=== PATIENT | female | born 1980 | race Two or more races ===

== ENCOUNTER 2025-03-19 23:09 | Emergency (ER) | payer MEDICAID, OTHER ==
[~2025-03-19] VITALS: Ht 172.7 cm; Wt 127.3 kg
--- NOTE | 2025-03-19 23:34 | ED.PDOC ---
History of Present Illness HPI Comments 45 y/o F is BIBA for c/c of nonradiating, midsternal chest pain, that radiates to her back, with associated shortness of breath. Per EMS report, patient endorses on sudden, unprovoked, and atraumatic onset of symptoms at around 2200, this evening. Patient comments on having a headache prior to onset of symptoms along with endorsement of 1x incident of blood in her stools after taking a laxative for constipation. Patient received 1x NTG by EMS en route, with improvement. Denial of any palpitations, dizziness, lightheadedness, or further associated symptoms. Chief Complaint: Chest Pain Time Seen by MD: 23:15 Reviewed Notes: Nurses Notes, Marsh Buggy Operator Notes, Medications, Allergies Allergies: Coded Allergies: Cephalexin (Verified Allergy, Unknown, 03/19/25) Penicillins (Verified Allergy, Unknown, 03/19/25) Sulfamethoxazole w/Trimethoprim (Verified Allergy, Unknown, 03/19/25) Information Source: Patient, Emergency Med Personnel Past Medical History PAST MEDICAL HISTORY: GERD, HTN Past Medical History (Other): bipolar disorder Surgical History: Thyroidectomy Surgical History (Other): Sinus surgery All Other Systems: Reviewed and Negative (Comprehensive systems review obtained and negative except for what is stated in the HPI.) Physical Exam General Appearance: Mild Distress, Obese HEENT: Normal ENT Inspection, Pharynx Normal, TMs Normal Neck: Full Range of Motion, Non-Tender, Normal, Normal Inspection Respiratory: Chest Non-Tender, Lungs Clear, No Accessory Muscle Use, No Resp iratory Distress, Normal Breath Sounds Cardiovascular: No Edema, No JVD, No Murmur, No Gallop, Normal Peripheral Pulses, Regular Rate/Rhythm Breast Exam: Deferred Gastrointestinal: No Organomegaly, Non Tender, No Pulsatile Mass, Normal Bowel Sounds, Soft Genitalia: Deferred Pelvic: Deferred Rectal: Deferred Extremities: No calf tenderness, Normal capillary refill, Normal inspection, Normal range of motion, Non-tender, No pedal edema Musculoskeletal : Apperance: Normal Neurologic: Alert, 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 Was a procedure done?: No Differential Dx Considerations may include: DE, PE, ACS, URI, PNA, angina, anxiety, gastritis, among others X-Ray, Labs, Meds, VS Vital Signs Date Time Temp Pulse Resp B/P (MAP) Pulse Ox O2 Delivery O2 Flow Rate FiO2 03/20/25 00:03 89 03/19/25 23:10 98.1 115 20 98/66 99 98.1 03/19/25 23:10 107 Lab Test 03/19/25 23:20 Range/Units White Blood Count 8.1 4.4-10.8 10^3/uL Red Blood Count 5.35 H 4.0-5.20 10^6/uL Hemoglobin 12.1 L 12.2-16.2 g/dL Hematocrit 37.7 36.0-46.0 % Mean Corpuscular Volume 70.6 L 80.0-100.0 fL Mean Corpuscular Hemoglobin 22.7 L 28.0-32.0 pg Mean Corpuscular Hemoglobin Concent 32.1 32.0-36.0 g/dL Red Cell Distribution Width 18.7 H 11.8-14.3 % Platelet Count 241 140-450 10^3/uL Mean Platelet Volume 8.5 6.9-10.8 fL Neutrophils (%) (Auto) 71.2 37.0-80.0 % Lymphocytes (%) (Auto) 23.9 10.0-50.0 % Monocytes (%) (Auto) 4.5 0.0-12.0 % Eosinophils (%) (Auto) 0.1 0.0-7.0 % Basophils (%) (Auto) 0.3 0.0-2.0 % Neutrophils # (Auto) 5.8 1.6-8.6 10 ^3/uL Lymphocytes # (Auto) 1.9 0.4-5.4 10 ^3/uL Monocytes # (Auto) 0.4 0-1.3 10 ^3/uL Eosinophils # (Auto) 0 0-0.8 10 ^3/uL Basophils # (Auto) 0 0-0.2 10 ^3/uL Nucleated Red Blood Cells 0.0 % Sodium Level 139 136-145 mmol/L Potassium Level 3.7 3.5-5.1 mmol/L Chloride Level 109 H 98-107 mmol/L Carbon Dioxide Level 26 20-31 mmol/L Anion Gap 4 L 5-15 Blood Urea Nitrogen 11 9-23 mg/dL Creatinine 0.77 0.550-1.02 mg/dL Glomerular Filtration Rate Calc 96 >90 mL/min BUN/Creatinine Ratio 14.3 10.0-20.0 Serum Glucose 124 H 74-106 mg/dL Calcium Level 9.0 8.7-10.4 mg/dL Total Bilirubin 0.3 0.2-1.0 mg/dL Aspartate Amino Transferase (AST) 18 13-40 U/L Alanine Aminotransferase (ALT) 18 7-40 U/L Alkaline Phosphatase 78 46-116 U/L Troponin I High Sensitivity < 3 L </=34 ng/L Total Protein 7.1 5.7-8.2 g/dL Albumin 4.4 3.2-4.8 g/dL [place] [id number] Ph: [phone] DIAGNOSTIC IMAGING Diagnostic Imaging Report : [id number] Signed PATIENT: ALBERTINA MARTINEZ ACCT: [id number] UNIT: [id number] : 1980 LOC: ER ROOM / BED: / AGE / SEX: 45 / F ADM STATUS: REG ER SERVICE 2333 ORDERING PHYSICIAN: MIKY CARR MD PROCEDURE(s): CXRP - CHEST PORTABLE REASON: chest pain ORDER NUMBER(s): [id number], ACCESSION NUMBER(s): [id number] CHEST RADIOGRAPH Indication: chest pain Technique: Single frontal view of the chest was obtained COMPARISON: None FINDINGS: Lines and Tubes: None Lungs: Clear Pleura: No pleural effusion or pneumothorax. Cardiomediastinal contours: Within normal limits IMPRESSION: No abnormality demonstrated. ATED BY: SUNG JIMENEZ MD DICTATED DATE/TIME: 03/20/2520 SIGNED BY: SUNG JIMENEZ MD SIGNED DATE/TIME: 03/20/2520 CC: Time of 1ST Reevaluation: 23:45 Reevaluation 1ST: Unchanged Patient Education/Counseling: Diagnosis, Treatment, Need For Follow Up Family Education/Counseling: No Family Present SEPSIS Sepsis Screen Physician Orders Urinalysis (03/19/25 UNK) Electrocardigram (03/19/25 23:32) Electrocardigram (03/20/25 00:32) Electrocardigram (03/20/25 02:32) Chest Portable (03/19/25 23:33) Vital Signs Date Time Temp Pulse Resp B/P (MAP) Pulse Ox O2 Delivery O2 Flow Rate FiO2 03/20/25 00:03 89 03/19/25 23:10 98.1 115 20 98/66 99 98.1 03/19/25 23:10 107 Laboratory Tests Test 03/19/25 23:20 White Blood Count 8.1 10^3/uL (4.4-10.8) Departure 1 Departure Time of Disposition: 01:30 Impression: Primary Impression: Atypical chest pain Disposition: HOME / SELF CARE / HOMELESS Condition: Stable Discharged With: Self Critical Care Note Critical Care Time?: No Stability Stability form required: No Heart Score Heart Score: Heart Score Response (Comments) Value History Moderate Suspicious 1 EKG Normal 0 Age 45-64 1 Risk Factors >3 or Hx ASHD 2 Troponin Normal limit 0 Total 4 I personally scribed for MIKY CARR MD ([email or web address]) on 03/19/25 at 23:34. Electronically submitted by Solomon Reid ([email or web address]). I personally scribed for MIKY CARR MD ([email or web address]) on 03/20/25 at 01:26. Electronically submitted by Soloomn Reid ([email or web address]). MIKY CARR MD Mar 19, 2025 23:34
[2025-03-19 23:49] LABS: Hematocrit 37.7 % (36.0-46.0); Hemoglobin 12.1 g/dL (12.2-16.2); Mean Corpuscular Hemoglobin 22.7 pg (28.0-32.0); Mean Corpuscular Volume 70.6 fL (80.0-100.0); Nucleated Red Blood Cells % 0.0 %
[2025-03-20] LABS: Alanine Aminotransferase 18 U/L (7-40); Alkaline Phosphatase 78 U/L (46-116); Anion Gap 4 (5-15); BUN/Creatinine Ratio 14.3 (10.0-20.0); Blood Urea Nitrogen 11 mg/dL (9-23); Calcium 9.0 mg/dL (8.7-10.4); Carbon Dioxide 26 mmol/L (20-31); Potassium 3.7 mmol/L (3.5-5.1); Sodium 139 mmol/L (136-145); Total Protein 7.1 g/dL (5.7-8.2)
[2025-03-20 00:01] LABS: Albumin 4.4 g/dL (3.2-4.8)
[2025-03-20 00:02] LABS: Bilirubin, Total 0.3 mg/dL (0.2-1.0); Chloride 109 mmol/L (98-107); Glucose 124 mg/dL (74-106)
--- NOTE | 2025-03-20 00:23 | DVH ---
CHEST RADIOGRAPH Indication: chest pain Technique: Single frontal view of the chest was obtained COMPARISON: None FINDINGS: Lines and Tubes: None Lungs: Clear Pleura: No pleural effusion or pneumothorax. Cardiomediastinal contours: Within normal limits IMPRESSION: No abnormality demonstrated.
[2025-03-20 03:30] VITALS: BP 107/70; PULSE 86; RESP 18; TEMP 98; O2SAT 96
--- NOTE | 2025-03-20 04:14 | ECG ---
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
--- NOTE | 2025-03-20 04:15 | ECG ---
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
== END 2025-03-20 03:30 | disposition home or self-care (01) ==
LOC: EDBD 23:09 → ER 23:09
DX: R07.89 Other chest pain (principal); M54.9 Dorsalgia, unspecified; R06.02 Shortness of breath; I10 Essential (primary) hypertension; K21.9 Gastro-esophageal reflux disease without esophagitis; F31.9 Bipolar disorder, unspecified; Z90.89 Acquired absence of other organs; Z88.0 Allergy status to penicillin; Z88.1 Allergy status to other antibiotic agents; Z88.2 Allergy status to sulfonamides
CPT/HCPCS: 36415; 71045; 80053; 84484; 85025; 93005